=== PATIENT | female | born 1935 | race Caucasian/White ===

== ENCOUNTER 2020-01-16 11:04 | Emergency (ER) | payer MEDICARE ==
[~2020-01-16] VITALS: Ht 157.5 cm; Wt 77.1 kg
--- NOTE | 2020-01-16 12:01 | Diagnostic Imaging Report ---
EXAM: HAND 2 VIEW RT - [facility] DATE: 01/16/2020 11:35 AM INDICATION: Fall, trauma COMPARISON: None FINDINGS: There is no evidence for acute fracture or dislocation within the right hand. No focal lytic or blastic abnormality is identified. Advanced degenerative changes are noted in the first carpometacarpal joint. Additional scattered degenerative changes noted within the wrist. The surrounding soft tissues are unremarkable without evidence for radiopaque foreign body. IMPRESSION: No acute radiographic abnormality identified within the right hand. Degenerative changes as above. Signed by: Dr. Dread Ward MD on 01/16/2020 11:58 AM
--- NOTE | 2020-01-16 12:13 | Diagnostic Imaging Report ---
EXAM: SHOULDER 2+VW RT - [facility] DATE: 01/16/2020 11:32 AM INDICATION: Fall, trauma COMPARISON: None FINDINGS: There is no evidence for displaced fracture or dislocation. The humeral head maintains normal relation with the glenoid. Osteophyte noted extending off the inferomedial right humeral head. Moderate AC joint arthropathy noted. Chondral calcifications noted within the rotator cuff. No radiopaque foreign body is appreciated. The right hemithorax is clear. IMPRESSION: No acute radiographic abnormality identified in the right shoulder. Degenerative changes as above. Signed by: Dr. Dread Ward MD on 01/16/2020 12:09 PM
--- NOTE | 2020-01-16 13:18 | Emergency Department Note ---
History of Present Illnes History of Present Illness Chief Complaint: Extremity Trauma/Pain History of Present Illness This is a 84 year old female Chief Complaint Comment PATIENT REPORTS THAT YESTERDAY SHE WAS BENDING OVER TO PICK SOMETHING UP WHEN SHE LOST HER BALANCE, FELL BACK AND ONTO RIGHT SIDE. TODAY C/O PAIN AND DECREASED ROM TO RIGHT SHOULDER AND TENDERNESS TO RIGHT HAND AND WRIST . Historian: Patient Arrival Mode: Car Onset (how long ago): day(s) Location: right shoulder Quality: sharp Radiation: Denies non-radiation, Denies back, Denies neck, Denies extremity, Denies abdomen, Denies periumbilical, Denies flank, Denies proximal, Denies distal, Denies other Severity: moderate Onset quality: gradual Duration (how long): day(s) (1) Timing of current episode: constant Progression: unchanged Chronicity: new Context: Denies recent illness, Denies recent surgery, Denies recent immobilization, Denies recent travel, Denies trauma/injury, Denies new medications, Denies hx of DVT/PE, Denies non-compliance w/ medications, Denies other Relieving factors: rest Exacerbating factors: movement Associated symptoms: Denies denies other symptoms, Denies confusion, Denies chest pain, Denies cough, Denies diaphoresis, Denies fever/chills, Denies headaches, Denies loss of appetite, Denies malaise, Denies nausea/vomiting, Denies rash, Denies seizure, Denies shortness of breath, Denies syncope, Denies weakness, Denies other Treatments prior to arrival: none Past Medical/Family History Physician Review I have reviewed the patient's past medical and family history. Any updates have been documented here. 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 Social History Smoking Cessation: Never Smoker Alcohol Use: None Any Illegal Drug Use: No Other Any Pre-Existing Lines (PICC,: No Review of Systems Review of Systems Constitutional: Reports no symptoms EENTM: Reports no symptoms; Denies as per HPI, Denies eye pain, Denies blurred vision, Denies tearing, Denies double vision, Denies ear pain, Denies ear discharge, Denies nose pain, Denies nose congestion, Denies throat pain, Denies throat swelling, Denies mouth pain, Denies mouth swelling, Denies other Cardiovascular: Reports no symptoms; Denies as per HPI, Denies chest pain, Denies edema, Denies palpitations, Denies syncope, Denies other Respiratory: Reports no symptoms Gastrointestinal: Reports no symptoms; Denies as per HPI, Denies abdominal pain, Denies constipation, Denies diarrhea, Denies nausea, Denies vomiting, Denies other Genitourinary: Reports no symptoms Musculoskeletal: Reports as per HPI Integumentary: Reports no symptoms; Denies as per HPI, Denies change in color, Denies change in hair/nails, Denies dryness, Denies lesions, Denies lumps, Denies rash, Denies poor turgor, Denies ecchymosis, Denies other Neurological: Reports no symptoms; Denies as per HPI, Denies headache, Denies numbness, Denies paresthesia, Denies pre-existing deficit, Denies seizure, Denies tingling, Denies tremors, Denies weakness, Denies other Psychological: Reports no symptoms; Denies as per HPI, Denies anxiety, Denies depressed, Denies emotional problems, Denies other Endocrine: Reports no symptoms; Denies as per HPI, Denies excessive sweating, Denies flushing, Denies intolerance to cold, Denies intolerance to heat, Denies increased hunger, Denies increased thirst, Denies increased urination, Denies unexplained weight gain, Denies unexplained weight loss, Denies other Hematological/Lymphatic: Reports no symptoms Physical Exam Related Data Triage Vital Signs Vital Signs Date Time Temp Pulse Resp B/P (MAP) Pulse Ox O2 Delivery O2 Flow Rate FiO2 01/16/20 11:15 97.8 73 16 141/97 97 Room Air Vital signs reviewed: Yes Physical Exam CONSTITUTIONAL Constitutional: Present well-developed, Present well-nourished HENT HENT: Present normocephalic, Present atraumatic, Present oropharynx clear/moist, Present nose normal HENT L/R: Present left ext ear normal, Present right ext ear normal EYES Eyes: Reports PERRL, Reports conjunctivae normal NECK Neck: Present ROM normal PULMONARY Pulmonary: Present effort normal, Present breath sounds normal CARDIOVASCULAR Cardiovascular: Present regular rhythm, Present heart sounds normal, Present capillary refill normal, Present normal rate GASTROINTESTINAL Abdominal: Present soft, Present nontender, Present bowel sounds normal GENITOURINARY Genitourinary: Present exam deferred SKIN Skin: Present warm, Present dry MUSCULOSKELETAL Musculoskeletal: Present ROM normal, Present tenderness (right shoulder) NEUROLOGICAL Neurological: Present alert, Present oriented x 3, Present no gross motor or sensory deficits PSYCHOLOGICAL Psychological: Present mood/affect normal, Present judgement normal Results Imaging Imaging results reviewed: Yes Assessment & Plan Medical Decision Making MDM humerus fx radiua fx Reassessment Reassessment time: 13:17 Reassessment better Assessment & Plan Final Impression: (1) Acute pain due to trauma (2) Contusion of shoulder, right Depart Disposition: HOME, SELF-CARE Last Vital Signs Date Time Temp Pulse Resp B/P (MAP) Pulse Ox O2 Delivery O2 Flow Rate FiO2 01/16/20 11:15 97.8 73 16 141/97 97 Room Air WALE BAZAN MD Jan 16, 2020 13:18
--- NOTE | 2020-01-16 13:36 | Diagnostic Imaging Report ---
EXAM: HUMERUS 2VIEW RT -[facility], FOREARM 2 VIEW RT - [facility] DATE: 01/16/2020 1:00 PM INDICATION: Fall, trauma COMPARISON: Shoulder radiograph from earlier in 01/16/2020 FINDINGS: There is no evidence for acute fracture or dislocation within the right humerus or forearm. Again noted are degenerative changes within the right shoulder with prominent osteophyte extending off the humeral head. Calculations noted at the level of the rotator cuff. Partially visualized degenerative changes noted within the wrist. The surrounding soft tissues are unremarkable without evidence for radiopaque foreign body or significant joint effusion. IMPRESSION: No acute radiographic abnormality identified in the right humerus or forearm. Signed by: Dr. Dread Ward MD on 01/16/2020 1:33 PM
[2020-01-16] MEDS ORDERED: TYLENOL # 31 EA PO (13:37)
[2020-01-16] MEDS ORDERED: HYDROCODONE/APAP 5MG-325MG TAB PO ONE (13:45)
[2020-01-16] MEDS ORDERED: HYDROCODONE/APAP 5MG-325MG TAB ONE (13:54)
== END 2020-01-16 13:58 | disposition home or self-care (01) ==
LOC: FSED 11:27
DX: S40.011A Contusion of right shoulder, initial encounter (principal); W01.0XXA Fall on same level from slipping, tripping and stumbling without subsequent striking against object, initial encounter; Y92.008 Other place in unspecified non-institutional (private) residence as the place of occurrence of the external cause; I12.0 Hypertensive chronic kidney disease with stage 5 chronic kidney disease or end stage renal disease; E11.22 Type 2 diabetes mellitus with diabetic chronic kidney disease; N18.6 End stage renal disease
CPT/HCPCS: 99284